=== PATIENT | male | born 1970 | race Caucasian/White ===

== ENCOUNTER 2018-12-15 12:26 | Emergency (ER) | payer BC ==
--- NOTE | 2018-12-15 13:36 | ER Document Report ---
ED Medical Screen (RME) - General Chief Complaint: Difficulty Swallowing Stated Complaint: SORE THROAT Time Seen by Provider: 12/15/18 13:33 Mode of Arrival: Ambulatory Information source: Patient Notes: 48-year-old male presents to ED for complaint of difficulty swallowing. He states he has not been able to swallow any water or anything without gagging and throwing up. He states he is not been able to swallow his own saliva. He states he has a bottle with him and noted to spit in. Is alert oriented respirations regular and unlabored speaking in full sentences. He is not drooling he is afebrile vital signs are stable for him. He states this is happened in the past and he had waited out but this time it does not seem to be getting better. He states he swallowed a cookie last night and is not been able to swallow since then. I attempted to let him drink water and he gagged and spit the water and back into the vomit bag. I have spoken with Dr. Vidal who stated the patient needed to be main side because he will probably need a barium swallow and other medications. He states that there was no need to do labs or x-rays at this time until he is evaluated by a another provider. He states he does need to IV and he can have Ativan IV as long as he is not driving but the patient states he is driving. I have greeted and performed a rapid initial assessment of this patient. A comprehensive ED assessment and evaluation of the patient, analysis of test results and completion of medical decision making process will be conducted by an additional ED providers. TRAVEL OUTSIDE OF THE [place] IN LAST 30 DAYS: No - Related Data Allergies/Adverse Reactions: Iodinated Contrast- Oral and IV Dye Allergy (Verified 12/15/18 12:29) shellfish derived Allergy (Verified 12/15/18 12:29) Past Medical History Pulmonary Medical History: Reports: Hx Asthma Renal/ Medical History: Denies: Hx Peritoneal Dialysis Physical Exam - Vital signs Vitals: Temp Pulse Resp BP Pulse Ox 98 F 81 20 148/92 H 98 12/15/18 12:31 12/15/18 12:31 12/15/18 12:31 12/15/18 12:31 12/15/18 12:31 Course - Vital Signs Vital signs: Temp Pulse Resp BP Pulse Ox 98 F 81 20 148/92 H 98 12/15/18 12:31 12/15/18 12:31 12/15/18 12:31 12/15/18 12:31 12/15/18 12:31
[2018-12-15] MEDS ORDERED: GLUCAGON,HUMAN RECOMB 1 MG INJ SUBCUT ONE (14:09)
--- NOTE | 2018-12-15 14:17 | ER Document Report ---
ED General - General Chief Complaint: Difficulty Swallowing Stated Complaint: SORE THROAT Time Seen by Provider: 12/15/18 13:33 Mode of Arrival: Ambulatory Information source: Patient Notes: Patient is a 48-year-old male who presents today stating last evening he was eating a cookie and felt as if it got stuck into his throat. He states that he has been not able to swallow since that time. He denies any cough or shortness of breath. He denies any chest pain or fever. Patient states that this happened x1 1 year ago but resolved on its own spontaneously in 10-12 hours. He denies any sore throat, fever, or vomiting. TRAVEL OUTSIDE OF THE [place] IN LAST 30 DAYS: No - Related Data Allergies/Adverse Reactions: Iodinated Contrast- Oral and IV Dye Allergy (Verified 12/15/18 12:29) shellfish derived Allergy (Verified 12/15/18 12:29) Past Medical History - General Information source: Patient - Social History Smoking Status: Unknown if Ever Smoked Family History: Reviewed & Not Pertinent Patient has suicidal ideation: No Patient has homicidal ideation: No Pulmonary Medical History: Reports: Hx Asthma Renal/ Medical History: Denies: Hx Peritoneal Dialysis Review of Systems - Review of Systems Constitutional: denies: Fever Respiratory: denies: Short of breath Gastrointestinal: denies: Vomiting Musculoskeletal: denies: Leg swelling Skin: Other - no hives. denies: Rash Neurological/Psychological: Other - no slurred speech -: Yes All other systems reviewed and negative Physical Exam - Vital signs Vitals: Temp Pulse Resp BP Pulse Ox 98 F 81 20 148/92 H 98 12/15/18 12:31 12/15/18 12:31 12/15/18 12:31 12/15/18 12:31 12/15/18 12:31 Notes: Reviewed vital signs and nursing note as charted by RN. CONSTITUTIONAL: Alert and oriented and responds appropriately to questions. Well-appearing; well-nourished ENT: Normal nose; no rhinorrhea; moist mucous membranes; pharynx without lesions noted NECK: Supple without meningismus; non-tender; no cervical lymphadenopathy, no masses CARD: Regular rate and rhythm; no murmurs; symmetric distal pulses RESP: Normal chest excursion without splinting or tachypnea; breath sounds clear and equal bilaterally; no wheezes, no rhonchi, no rales ABD/GI: Normal bowel sounds; non-distended; soft, non-tender BACK: The back appears normal and is non-tender to palpation EXT: Normal ROM in all joints; non-tender to palpation; no edema SKIN: No acute lesions noted NEURO: CN 2-12 intact; 5/5 bilateral upper and lower extremity strength with sensation intact to light touch PSYCH: The patient's mood and manner are appropriate. Grooming and personal hygiene are appropriate. Course - Re-evaluation Re-evalutation: 12/15/18 14:18 Given the above history and physical examination, we will order a soft tissue x- ray of the neck, x-ray of the chest, provide a 1 mg subcutaneous glucagon. Patient appears to be in no distress with vital signs as recorded. 12/15/18 16:13 X-ray of the chest and soft tissue neck as recorded. Vital signs are stable. No relief with the glucagon. Still no pain or fever. I have consulted the general surgeon here who does endoscopy procedures, Dr. Hermosillo. 12/15/18 16:42 Dr. Hermosillo is seen and evaluated the patient and believe that the patient would benefit from going to the operating room for an endoscopy. Patient is in agreement. We have ordered IV access as well as basic labs. - Vital Signs Vital signs: Temp Pulse Resp BP Pulse Ox 98 F 81 20 148/92 H 98 12/15/18 12:31 12/15/18 12:31 12/15/18 12:31 12/15/18 12:31 12/15/18 12:31 Discharge - Discharge Clinical Impression: Esophageal foreign body Qualifiers: Encounter type: initial encounter Qualified Code(s): T18.108A - Unspecified foreign body in esophagus causing other injury, initial encounter Condition: Fair Disposition: ADMITTED OBSERVATION Admitting Provider: Surgicalist Unit Admitted: OR
--- NOTE | 2018-12-15 14:55 | RADIOLOGY REPORT (SQ) ---
EXAM DESCRIPTION: CHEST 2 VIEWS COMPLETED DATE/TIME: 12/15/2018 2:36 pm REASON FOR STUDY: 13hw, possible foreign body COMPARISON: None. EXAM PARAMETERS: NUMBER OF VIEWS: two views TECHNIQUE: Digital Frontal and Lateral radiographic views of the chest acquired. RADIATION DOSE: NA LIMITATIONS: none FINDINGS: LUNGS AND PLEURA: No opacities, masses or pneumothorax. No pleural effusion. MEDIASTINUM AND HILAR STRUCTURES: No masses or contour abnormalities. HEART AND VASCULAR STRUCTURES: Heart normal size. No evidence for failure. BONES: Disc degenerative disease of the thoracic spine. HARDWARE: None in the chest. OTHER: No other significant finding. IMPRESSION: No evidence of radiopaque foreign body. No acute abnormality of the lungs. TECHNICAL DOCUMENTATION: JOB ID: [id number] [employer]- All Rights Reserved Reading location - IP/workstation name: [email or web address]
--- NOTE | 2018-12-15 14:56 | RADIOLOGY REPORT (SQ) ---
EXAM DESCRIPTION: SOFT TISSUE NECK COMPLETED DATE/TIME: 12/15/2018 2:36 pm REASON FOR STUDY: possible foreign body COMPARISON: None. NUMBER OF VIEWS: Two views. TECHNIQUE: AP and lateral radiographic image of the soft tissues of the neck. LIMITATIONS: None. FINDINGS: EPIGLOTTIS: Normal. Contour normal. Aryepiglottic folds normal. PREVERTEBRAL SOFT TISSUES: Normal. No soft tissue swelling. SUBGLOTTIC AREA: Normal. No narrowing. RETROPHARYNGEAL SPACE: Normal. No soft tissue masses. BONES: Mild degenerative disc disease of the cervical spine. LUNG APICES: Normal. OTHER: 1 cm vertically-oriented linear density within the prevertebral soft tissues anterior to the i nferior a C6 vertebral body. IMPRESSION: Nonspecific1 cm vertically-oriented linear density within the prevertebral soft tissues anterior to the inferior a C6 vertebral body. Differential considerations include soft tissue calcif ication versus small radiopaque foreign body. TECHNICAL DOCUMENTATION: JOB ID: [id number] [employer]- All Rights Reserved Reading location - IP/workstation name: [email or web address]
[2018-12-15] MEDS ORDERED: RINGERS SOLUTION,LACTATED 1,000 ML IV PRN (16:45)
--- NOTE | 2018-12-15 16:50 | PDOC H&P ---
History of Present Illness Patient complains of: Inability to swallow saliva History of Present Illness: BRAULIO SANTILLAN is a 48 year old male Presents the emergency department via ground rescue complaining of a 24-hour history of inability to swallow solids liquids or even his saliva. Symptoms started after he ate a cookie mixed with peanuts. Patient has had similar episodes at least once or twice a month over the last year. Usually the episodes pass uneventfully. He denies history of GERD, stricture, esophageal motility problems. He is never had an endoscopy. He had a chest x-ray which apart which was unremarkable, and a C-spine film which showed an incidental 1 cm vertically oriented opacity anterior to C6 of uncertain significance. Surgery was consulted and the patient was advised to undergo upper endoscopy for diagnostic and therapeutic purposes. Past Medical History Medical History: None Pulmonary Medical History: Reports: Asthma Past Surgical History Past Surgical History: Reports: None Social History Information Source: Patient Smoking Status: Never Smoker Frequency of Alcohol Use: Social Hx Recreational Drug Use: No Hx Prescription Drug Abuse: No Family History Family History: Reviewed & Not Pertinent, Other - History of breast cancer grandmother on father's side Parental Family History Reviewed: Yes Children Family History Reviewed: Yes Sibling(s) Family History Reviewed.: Yes Medication/Allergy Allergies/Adverse Reactions: Iodinated Contrast- Oral and IV Dye Allergy (Verified 12/15/18 12:29) shellfish derived Allergy (Verified 12/15/18 12:29) Review of Systems Constitutional: PRESENT: as per HPI Eyes: ABSENT: visual disturbances Ears: ABSENT: hearing changes Cardiovascular: ABSENT: chest pain, dyspnea on exertion, edema, orthropnea, palpitations Genitourinary: ABSENT: dysuria, hematuria Musculoskeletal: ABSENT: joint swelling Integumentary: ABSENT: rash, wounds Psychiatric: ABSENT: anxiety, depression, homidical ideation, suicidal ideation Physical Exam Vital Signs: Temp Pulse Resp BP Pulse Ox 98 F 81 20 148/92 H 98 12/15/18 12:31 12/15/18 12:31 12/15/18 12:31 12/15/18 12:31 12/15/18 12:31 Intake & Output 12/14/18 12/15/18 12/16/18 06:59 06:59 06:59 Weight 93.8 kg General appearance: PRESENT: other - Anxious Head exam: PRESENT: normocephalic Eye exam: PRESENT: other - Wearing glasses Mouth exam: PRESENT: dry mucosa Neck exam: PRESENT: full ROM Respiratory exam: PRESENT: clear to auscultation bobbi Cardiovascular exam: PRESENT: RRR Pulses: PRESENT: normal carotid pulses, normal radial pulses, normal femoral pulses, normal dorsalis pedis pul GI/Abdominal exam: PRESENT: other - Soft nontender Rectal exam: PRESENT: deferred Extremities exam: PRESENT: full ROM Musculoskeletal exam: PRESENT: full ROM Neurological exam: PRESENT: alert, awake, oriented to person, oriented to place, oriented to time, oriented to situation Results Impressions: Chest X-Ray 12/15/18 14:08 IMPRESSION: No evidence of radiopaque foreign body. No acute abnormality of the lungs. Soft Tissue Neck X-Ray 12/15/18 14:08 IMPRESSION: Nonspecific1 cm vertically-oriented linear density within the prevertebral soft tissues anterior to the inferior a C6 vertebral body. Differential considerations include soft tissue calcification versus small radiopaque foreign body. Assessment & Plan - Diagnosis (1) Esophageal foreign body Qualifiers: Encounter type: initial encounter Qualified Code(s): T18.108A - Unspecified foreign body in esophagus causing other injury, initial encounter Is this a current diagnosis for this admission?: Yes Plan: Impression: Upper to mid esophageal obstruction based on clinical history; likely food bolus obstruction on top of a chronic stricture Recommendations: 1. Suggested upper endoscopy with foreign body extraction versus push through, in the operating room under controlled circumstances, 30 minutes; risk benefits alternatives to the planned procedure including bleeding, infection, reactions to medications, esophageal injury and perforation and loss of airway. (2) Alcohol use Is this a current diagnosis for this admission?: Yes - Time Time Spent: 30 to 50 Minutes Critical Time spent with patient: Less than 15 minutes Medications reviewed and adjusted accordingly: Yes Anticipated discharge: Home - Inpatient Certification Based on my medical assessment, after consideration of the patient's comorbidities, presenting symptoms, or acuity I expect that the services needed warrant INPATIENT care.: Yes I certify that my determination is in accordance with my understanding of Medicare's requirements for reasonable and necessary INPATIENT services [42 CFR 412.3e].: Yes Medical Necessity: Need for Surgery
[2018-12-15] MEDS ORDERED: PROPOFOL INJ 200 MG/20 ML VIAL IV ONE (16:57)
[2018-12-15] MEDS ORDERED: MIDAZOLAM 2 MG/2 ML INJ ONE (16:57)
[2018-12-15 17:30] VITALS: BP 139/86
== END 2018-12-15 18:32 | disposition home or self-care (01) ==
LOC: ER 12:26 → UNDOADMOB 16:47 → EH 16:47 → ER 18:32
DX: T18.108A Unspecified foreign body in esophagus causing other injury, initial encounter (principal); R13.10 Dysphagia, unspecified; X58.XXXA Exposure to other specified factors, initial encounter; J02.9 Acute pharyngitis, unspecified; J45.909 Unspecified asthma, uncomplicated
CPT/HCPCS: 99284; 96372; 71046; 70360; J2250; J1610; J2704